=== PATIENT | female | born 1975 | race Two or more races ===

== ENCOUNTER 2020-04-26 09:15 | Inpatient (IN) | payer OTHER ==
[~2020-04-26] VITALS: Ht 165.1 cm; Wt 78.0 kg
[2020-04-26] MEDS ORDERED: FORTAMET500 MG PO (11:18)
[2020-04-26] MEDS ORDERED: COZAAR50 MG PO (11:18)
[2020-04-26] MEDS ORDERED: FERROUS SULFATE PO (11:19)
[2020-04-26] MEDS ORDERED: SINVASTATIN PO (11:19)
[2020-05-24] MEDS ORDERED: IRON325 MG (07:48)
[2020-05-24] MEDS ORDERED: SIMVASTATIN20 MG PO (07:48)
== END 2020-05-26 10:48 | disposition home health service (06) | DRG 743 ==
LOC: SURH 05-03 09:15 → O/R 05-24 05:23 → OB/GYN 05-24 05:23 → SURH 05-24 07:00 → OB/GYN 05-24 13:04
PROVIDERS: ADMIT Obstetrics & Gynecology; ATTEND Obstetrics & Gynecology
PROC: 0UT60ZZ Resection of Left Fallopian Tube, Open Approach (ICD-10-PCS; 2020-05-24)
PROC: 0UT10ZZ Resection of Left Ovary, Open Approach (ICD-10-PCS; 2020-05-24)
PROC: 0UB00ZZ Excision of Right Ovary, Open Approach (ICD-10-PCS; principal; 2020-05-24 07:00)
DX: N80.1 Endometriosis of ovary (principal); N83.11 Corpus luteum cyst of right ovary; N73.6 Female pelvic peritoneal adhesions (postinfective)

== ENCOUNTER 2023-03-10 07:45 | Inpatient (IN) | payer OTHER ==
[~2023-03-10] VITALS: Ht 152.4 cm; Wt 76.7 kg
[~2023-03-10 07:45] MED LIST: COZAAR50 MG PO; FERROUS SULFATE PO; FORTAMET500 MG PO; IRON325 MG; SIMVASTATIN20 MG PO; SINVASTATIN PO
[2023-03-10] MEDS ORDERED: TROMBONEX CAPS1 EACH PO (08:56)
[2023-03-10] MEDS ORDERED: MAGNESIUM200 MG PO (08:56)
[2023-03-12] MEDS ORDERED: SIMVASTATIN40 MG PO (08:03)
[2023-03-12] MEDS ORDERED: IRON325 MG PO (08:04)
== END 2023-03-14 11:27 | disposition home or self-care (01) | DRG 743 ==
LOC: O/R 03-12 05:00 → SURG 03-12 07:00 → OB/GYN 03-12 10:20
PROVIDERS: ADMIT Obstetrics & Gynecology; ATTEND Obstetrics & Gynecology
PROC: 0UT50ZZ Resection of Right Fallopian Tube, Open Approach (ICD-10-PCS; 2023-03-12)
PROC: 0UT00ZZ Resection of Right Ovary, Open Approach (ICD-10-PCS; 2023-03-12)
PROC: 0DNU0ZZ Release Omentum, Open Approach (ICD-10-PCS; 2023-03-12)
PROC: 0TNB0ZZ Release Bladder, Open Approach (ICD-10-PCS; 2023-03-12)
PROC: 0DNW0ZZ Release Peritoneum, Open Approach (ICD-10-PCS; 2023-03-12)
PROC: 0UT90ZZ Resection of Uterus, Open Approach (ICD-10-PCS; principal; 2023-03-12 07:00)
DX: D25.0 Submucous leiomyoma of uterus (principal); N83.11 Corpus luteum cyst of right ovary; N80.03 Adenomyosis of the uterus; N84.1 Polyp of cervix uteri; N72 Inflammatory disease of cervix uteri; Z20.822 Contact with and (suspected) exposure to COVID-19